=== PATIENT | female | born 1945 | race Caucasian/White ===

== ENCOUNTER → 2019-10-14 | Outpatient (CLI) | payer MEDICARE ==
[~2019-10-14] MED LIST: AVAPRO75 MG PO; FLEXERIL10 MG PO; LIPITOR40 MG PO; MAXIDE; NAPROSYN500 MG PO; PREMARIN1.25 MG PO; PRILOSEC20 MG PO; SYNTHROID0.112 MG PO; ULTRAM50 MG PO
== END | disposition home or self-care (01) ==
LOC: COVID19 14:22
DX: B34.9 Viral infection, unspecified (principal); Z20.828 Contact with and (suspected) exposure to other viral communicable diseases; Z78.9 Other specified health status